=== PATIENT | female | born 1940 | race Caucasian/White ===

== ENCOUNTER 2016-07-22 08:52 | Inpatient (IN) | payer MEDICARE, OTHER ==
[~2016-07-22] VITALS: Ht 157.5 cm; Wt 61.7 kg
[2016-07-22] MEDS ORDERED: BISACODYL 10 MG SUPP RECTAL PRN (13:25)
[2016-07-22] MEDS ORDERED: ONDANSETRON 4 MG VIAL IV PRN (13:25)
[2016-07-22] MEDS ORDERED: SALINE FLUSH 10 ML FLUSH PRN (13:25)
[2016-07-22] MEDS ORDERED: MAG HYDROX 30 ML UDC PO PRN (13:25)
[2016-07-22] MEDS ORDERED: SODIUM CHLORIDE 0.9% 500 ML IV ONE (13:25)
[2016-07-22] MEDS ORDERED: ALU/MAG/SIM 30 ML UDC PO PRN (13:25)
[2016-07-22] MEDS ORDERED: ACETAMINOPHEN 325 MG TAB PO PRN (13:25)
[2016-07-22] MEDS ORDERED: SODIUM CHLORIDE 0.9% 1,000 ML IV SCH (13:25)
[2016-07-22] MEDS ORDERED: BISACODYL EC 5 MG TAB PO PRN (13:25)
[2016-07-22 14:33] VITALS: BP_SYST 118; BP_SYST 124; RESP 18; TEMP 97.3; Ht 157.5 cm; Wt 61.7 kg
[2016-07-22 19:16] VITALS: BP_SYST 115; RESP 18; TEMP 97.9
[2016-07-22] MEDS: SALINE FLUSH 10 ML FLUSH SCH (20:00)
[2016-07-22] MEDS: Atorvastatin 40 MG TAB PO SCH (21:27)
[2016-07-22] MEDS: METOPROLOL TART 25 MG TAB PO SCH (21:27)
[2016-07-22] MEDS: ASPIRIN 81 MG CHEW TAB PO SCH (21:28)
[2016-07-22 23:11] VITALS: BP_SYST 104; RESP 18; TEMP 97.9
[2016-07-23 05:12] VITALS: BP_SYST 125; RESP 18; TEMP 97.9
[2016-07-23] MEDS: SODIUM CHLORIDE 0.9% FLUSH BAG 500 ML IV SCH (06:00)
[2016-07-23 07:11] VITALS: BP_SYST 126; RESP 16; TEMP 98
[2016-07-23] MEDS: SALINE FLUSH 10 ML FLUSH SCH ×2 (07:34→20:00)
[2016-07-23] MEDS: METOPROLOL TART 25 MG TAB PO SCH ×2 (10:10→20:33)
[2016-07-23] MEDS: ASPIRIN 81 MG CHEW TAB PO SCH (10:10)
[2016-07-23] MEDS: ENOXAPARIN 40 MG/0.4 ML SYR SUBQ SCH (10:10)
[2016-07-23 10:30] VITALS: BP_SYST 115; RESP 16; TEMP 97.2
[2016-07-23] MEDS: LACT RINGERS 1,000 ML IV SCH (11:39)
[2016-07-23 15:45] VITALS: BP_SYST 116; RESP 16; TEMP 98.3
[2016-07-23 19:15] VITALS: BP_SYST 135; RESP 16; TEMP 98.4
[2016-07-23] MEDS: Atorvastatin 40 MG TAB PO SCH (20:33)
[2016-07-24] VITALS (7 sets, daily range): BP systolic 125–143; RESP 18; TEMP 97.3–97.9
[2016-07-24] MEDS: LACT RINGERS 1,000 ML IV SCH (04:59)
[2016-07-24] MEDS: SODIUM CHLORIDE 0.9% FLUSH BAG 500 ML IV SCH (06:00)
[2016-07-24] MEDS: SALINE FLUSH 10 ML FLUSH SCH ×2 (08:00→21:16)
[2016-07-24] MEDS ORDERED: KCL CR 20 MEQ TAB PO ONE (12:50)
[2016-07-24] MEDS: ASPIRIN 81 MG CHEW TAB PO SCH (12:53)
[2016-07-24] MEDS: ENOXAPARIN 40 MG/0.4 ML SYR SUBQ SCH (12:53)
[2016-07-24] MEDS: METOPROLOL TART 25 MG TAB PO SCH ×2 (12:53→21:16)
[2016-07-24] MEDS ORDERED: STOP IV IV SCH (19:10)
[2016-07-24] MEDS ORDERED: OPTIRAY 350 100 ML VIAL HMH IV ONE (19:18)
[2016-07-24] MEDS: Atorvastatin 40 MG TAB PO SCH (21:16)
[2016-07-25] MEDS: SODIUM CHLORIDE 0.9% FLUSH BAG 500 ML IV SCH (03:38)
[2016-07-25 04:40] VITALS: BP_SYST 148; RESP 18; TEMP 98.2
[2016-07-25 07:37] VITALS: BP_SYST 147; RESP 18; TEMP 98.4
[2016-07-25] MEDS: SALINE FLUSH 10 ML FLUSH SCH ×2 (10:22→20:04)
[2016-07-25] MEDS: METOPROLOL TART 25 MG TAB PO SCH ×2 (10:22→20:03)
[2016-07-25] MEDS: ENOXAPARIN 40 MG/0.4 ML SYR SUBQ SCH (10:22)
[2016-07-25] MEDS: ASPIRIN 81 MG CHEW TAB PO SCH (10:22)
[2016-07-25 11:13] VITALS: BP_SYST 131; RESP 18; TEMP 97.4
[2016-07-25 15:09] VITALS: BP_SYST 130; RESP 18; TEMP 97.6
[2016-07-25 19:32] VITALS: BP_SYST 138; RESP 20; TEMP 98.1
[2016-07-25] MEDS: Atorvastatin 40 MG TAB PO SCH (20:03)
[2016-07-25 23:59] VITALS: BP_SYST 128; RESP 16; TEMP 97.7
[2016-07-26] VITALS (9 sets, daily range): BP systolic 122–151; RESP 20; TEMP 97.6–98.4
[2016-07-26] MEDS: SALINE FLUSH 10 ML FLUSH SCH (08:30)
[2016-07-26] MEDS: METOPROLOL TART 25 MG TAB PO SCH (09:30)
[2016-07-26] MEDS: ASPIRIN 81 MG CHEW TAB PO SCH (09:30)
[2016-07-26] MEDS: ENOXAPARIN 40 MG/0.4 ML SYR SUBQ SCH (09:30)
== END 2016-07-26 17:52 | DRG 92 ==
LOC: ENRESERVDT → ENRESERVTM → ER 08:52 → EMR 13:25 → UNDOADMOB 13:44 → EMR 13:44 → 4NT 14:19 → ENPENDDIS 07-23 13:49 → INTOOBSV 07-23 13:49 → OBSVTOIN 07-23 13:49
PROVIDERS: ADMIT Family Medicine; ATTEND Family Medicine
DX: G92 Toxic encephalopathy (principal); N17.9 Acute kidney failure, unspecified; E87.0 Hyperosmolality and hypernatremia; I95.9 Hypotension, unspecified; E86.0 Dehydration; F03.90 Unspecified dementia, unspecified severity, without behavioral disturbance, psychotic disturbance, mood disturbance, and anxiety; G62.9 Polyneuropathy, unspecified; T42.8X5A Adverse effect of antiparkinsonism drugs and other central muscle-tone depressants, initial encounter; T42.4X5A Adverse effect of benzodiazepines, initial encounter; Y92.009 Unspecified place in unspecified non-institutional (private) residence as the place of occurrence of the external cause; Z86.73 Personal history of transient ischemic attack (TIA), and cerebral infarction without residual deficits; R53.1 Weakness; I10 Essential (primary) hypertension; Z95.0 Presence of cardiac pacemaker; Z85.3 Personal history of malignant neoplasm of breast; Z92.3 Personal history of irradiation; Z79.82 Long term (current) use of aspirin
CPT/HCPCS: 36415; 70450; 70496; 70498; 71010; 80048; 80053; 81001; 82378; 82550; 82607; 82746; 83018; 84439; 84443; 85025; 86038; 86618; 93660; 99220; 99232; 99233; 99239